=== PATIENT | female | born 1960 | race Caucasian/White ===

== ENCOUNTER 2021-06-21 11:47 | Emergency (ER) | payer OTHER ==
[~2021-06-21] VITALS: Ht 165.1 cm; Wt 54.4 kg
[2021-06-21] MEDS ORDERED: IV NS 1000 ML 1,000 ML IV ONE (12:00)
[2021-06-21] MEDS ORDERED: LORAZEPAM 2 MG/1 ML VIAL IV ONE (12:00)
--- NOTE | 2021-06-21 12:00 | NUR ---
Family found out that patient ate a marijuana edible, unbenowst to family [employer].
[2021-06-21] MEDS ORDERED: LORAZEPAM 2 MG/1 ML VIAL ONE (12:06)
--- NOTE | 2021-06-21 13:49 | NUR ---
Pt can ambulate w/assistance. Removed IV intact, site okay, bandaged. Gave pt and family d/c instructions, family verbalized understanding.
== END 2021-06-21 13:52 | disposition home or self-care (01) ==
LOC: ER 11:47
DX: R41.82 Altered mental status, unspecified (principal); M79.7 Fibromyalgia
CPT/HCPCS: 93005; 96361; 96374; 99284; J2060; J7040; A4663